=== PATIENT | male | born 1990 | race Caucasian/White ===

== ENCOUNTER 2017-07-24 17:10 | Emergency (ER) | payer OTHER ==
[2017-07-24 17:44] LABS: BASOPHILS 0.2 % (0-2); EOSINOPHILS 2.9 % (0-7); HEMATOCRIT 42.7 % (42.0-54.0); HEMOGLOBIN 15.5 g/dL (13.5-17.5); IMMATURE GRANULOCYTES 0.1 % (0-5); LYMPHOCYTES 35.7 % (15-50); MCHC 36.3 g/dL (31.0-37.0); MCV 88.2 fL (80.0-100.0); MEAN PLATELET VOLUME 9.6 fL (7.4-10.4); MONOCYTES 7.5 % (2-11); NEUTROPHILS 53.6 % (40-80); PLATELET COUNT 237 10x3/uL (130-400); RBC 4.84 10x6/uL (4.20-6.10); RDW 12.5 % (11.5-14.5); WBC 9.3 10x3/uL (4.8-10.8)
[2017-07-24 17:59] LABS: ALBUMIN 4.6 g/dL (3.4-5.0); ALKALINE PHOSPHATASE 65 U/L (46-116); ALT (SGPT) 24 U/L (10-68); CALC OSMOLALITY 277 mosm/kg (275-300); CALCIUM 10.3 mg/dL (8.5-10.1); CARBON DIOXIDE 20.3 mmol/L (21.0-32.0); CHLORIDE - SERUM 105 mmol/L (98-107); CREATININE - SERUM 1.3 mg/dL (0.6-1.3); GLUCOSE 94 mg/dL (74-106); POTASSIUM - SERUM 3.8 mmol/L (3.5-5.1); PROTEIN - SERUM 8.2 g/dL (6.4-8.2); SODIUM 139 mmol/L (136-145); UREA NITROGEN 12 mg/dL (7-18); eGFR NON AFRICAN AMERICAN 70 mL/min (90-120)
[2017-07-24 18:08] LABS: CHOL - HDL RATIO 6.3 ratio (2.3-4.9); CHOLESTEROL, TOTAL 228 mg/dL (0-200); CKMB 0.5 U/L (0.0-3.6); CREATINE KINASE 111 UL (21-232); HDL CHOLESTEROL 36 mg/dL (32-96); LDL CHOLESTEROL 173 mg/dL (0-100); LDL-HDL RATIO 4.8 ratio (1.5-3.5); TRIGLYCERIDE 95 mg/dL (30-200); TROPONIN-I < 0.017 ng/mL (0.000-0.060)
== END 2017-07-24 19:05 | disposition home or self-care (01) ==
LOC: D.ER 17:10
PROVIDERS: Family Medicine
DX: M94.0 Chondrocostal junction syndrome [Tietze] (principal); R07.89 Other chest pain; F17.200 Nicotine dependence, unspecified, uncomplicated; I45.10 Unspecified right bundle-branch block

== ENCOUNTER 2017-08-02 15:32 | Emergency (ER) | payer OTHER | END 2017-08-02 17:47 | disposition left against medical advice (07) | LOC: D.ER 15:32 | DX: S89.92XA Unspecified injury of left lower leg, initial encounter (principal); X58.XXXA Exposure to other specified factors, initial encounter; Y93.89 Activity, other specified; Y92.89 Other specified places as the place of occurrence of the external cause ==

== ENCOUNTER 2018-03-31 09:10 | Emergency (ER) | payer OTHER | END 2018-03-31 10:22 | disposition home or self-care (01) | LOC: D.ER 09:10 | DX: S43.401A Unspecified sprain of right shoulder joint, initial encounter (principal); W19.XXXA Unspecified fall, initial encounter; Y93.89 Activity, other specified; Y92.019 Unspecified place in single-family (private) house as the place of occurrence of the external cause; B34.9 Viral infection, unspecified; J06.9 Acute upper respiratory infection, unspecified; F17.200 Nicotine dependence, unspecified, uncomplicated ==

== ENCOUNTER 2019-09-06 16:16 | Emergency (ER) | payer OTHER ==
[~2019-09-06] VITALS: Ht 175.3 cm; Wt 81.8 kg
[2019-09-06 16:24] VITALS: BP 123/76; Ht 175.3 cm; Wt 81.8 kg
[2019-09-06] MEDS ORDERED: SEROQUEL200 MG PO (16:25)
[2019-09-06] MEDS ORDERED: OMEPRAZOLE20 M1 PO (16:26)
== END 2019-09-06 16:50 | disposition left against medical advice (07) ==
LOC: D.ER 16:16
DX: S51.051A Open bite, right elbow, initial encounter (principal); W54.0XXA Bitten by dog, initial encounter; K21.9 Gastro-esophageal reflux disease without esophagitis